=== PATIENT | male | born 1970 | race Caucasian/White ===

== ENCOUNTER 2017-12-12 18:36 | Emergency (ER) | payer SELFPAY ==
[2017-12-12] MEDS ORDERED: TETRACAINE HCL 0.5% 2ML OPTH ONE (19:42)
[2017-12-12] MEDS ORDERED: FLUORESCEIN SODIUM 0.6 MG/WRAP ONE (19:42)
--- NOTE | 2017-12-12 20:11 | ER ---
Nurse's Notes [facility] Name: Bear Clements Age: 47 yrs Sex: Male : 1970 Arrival Date: 12/12/2017 Time: 18:37 Bed Treatment Private MD: Alejandro Cary T Diagnosis: Foreign body in cornea, left eye;Corneal Abrasion, left eye Presentation: 12/12 18:47 Presenting complaint: Patient states: I was standing around yesterday and something la1 flew in to my left eye and I have had pain since then. Transition of care: patient was not received from another setting of care. Onset of symptoms was December 12, 2017. Initial Sepsis Screen: Does the patient meet any 2 criteria? No. Patient's initial sepsis screen is negative. Does the patient have a suspected source of infection? No. Patient initial sepsis screen negative. Care prior to arrival: None. 18:47 Method Of Arrival: Ambulatory la1 18:47 Acuity: GÉNESIS 4 la1 Historical: - Allergies: 18:48 Celebrex; la1 18:48 Morphine; la1 18:48 STEROIDAL NEUROMUSCULAR BLOCKERS; la1 18:48 Vicodin; la1 - PMHx: 18:48 None; la1 - Immunization history:: Adult Immunizations up to date. - Social history:: Smoking status: Patient uses tobacco products, cigars. - Family history:: not pertinent. - Hospitalizations: : No recent hospitalization is reported. Screenin:47 Abuse screen: Denies threats or abuse. Denies injuries from another. Nutritional ao screening: No deficits noted. Tuberculosis screening: No symptoms or risk factors identified. Fall Risk None identified. Assessment: 19:45 General: Appears in no apparent distress. uncomfortable, Behavior is calm, cooperative, ao appropriate for age. Pain: Denies pain. Neuro: Level of Consciousness is awake, alert, obeys commands, Oriented to person, place, time, situation, Appropriate for age Moves all extremities. Speech is normal, Facial symmetry appears normal. Cardiovascular: No deficits noted. Patient's skin is warm and dry. Respiratory: No deficits noted. Airway is patent Respiratory effort is even, unlabored, Respiratory pattern is regular, symmetrical. GI: No deficits noted. Abdomen is non-distended. : No signs and/or symptoms were reported regarding the genitourinary system. EENT: Eyes are tearing on iris of left eye Reports Foreign body in the right eye. Derm: No signs and/or symptoms reported regarding the dermatologic system. Musculoskeletal: No signs and/or symptoms reported regarding the musculoskeletal system. 20:01 Reassessment: DR Cotton at bedside trying to remove object in the eye. ao Vital Signs: 18:48 BP 142 / 91; Pulse 79; Resp 16; Temp 98.4; Pulse Ox 100% on R/A; Weight 77.11 kg; la1 Height 5 ft. 10 in. (177.80 cm); 18:48 Body Mass Index 24.39 (77.11 kg, 177.80 cm) la1 ED Course: 18:37 Patient arrived in ED. as 18:37 Alejandro Cary MD is Private Physician. as 18:47 Triage completed. la1 18:48 Arm band placed on left wrist. la1 19:24 Delroy Carranza RN is Primary Nurse. ao 19:39 Leonel Cotton MD is Attending Physician. rn 19:47 Patient has correct armband on for positive identification. Pulse ox on. NIBP on. ao 20:10 Michael Augustin MD is Referral Physician. rn 20:18 No provider procedures requiring assistance completed. Patient did not have IV access ao during this emergency room visit. Administered Medications: No medications were administered Outcome: 20:10 Discharge ordered by . rn 20:18 Discharged to home ambulatory. ao 20:18 Condition: stable 20:18 Discharge instructions given to patient, Instructed on discharge instructions, follow up and referral plans. Demonstrated understanding of instructions, follow-up care, medications, Prescriptions given X 1. 20:18 Patient left the ED. ao Signatures: Vale Matamoros Roman, MD MD rn Attema, Lee, RN RN la1 Delroy Carranza RN RN ao Corrections: (The following items were deleted from the chart) 18:49 18:47 Acuity: GÉNESIS 3 la1 la1
--- NOTE | 2017-12-12 20:11 | EDPHYS ---
Physician Documentation [facility] Name: Bear Clements Age: 47 yrs Sex: Male : 1970 Arrival Date: 12/12/2017 Time: 18:37 Bed Treatment Private MD: Alejandro Cary T ED Physician Leonel Cotton HPI: 12/12 20:02 This 47 yrs old Male presents to ER via Ambulatory with complaints of Foreign rn Body In Eye. 20:02 This 47 yrs old Male presents to ER via Ambulatory with complaints of Foreign rn Body In Eye. 20:02 The patient is experiencing foreign body sensation, The patient sustained Unknown. to rn the left eye. Onset: The symptoms/episode began/occurred yesterday. Associated signs and symptoms:. Severity of symptoms: At their worst the symptoms were moderate in the emergency department the symptoms are unchanged. The patient has not experienced similar symptoms in the past. 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 Does not wear contacts. . Historical: - Allergies: 18:48 Celebrex; la1 18:48 Morphine; la1 18:48 STEROIDAL NEUROMUSCULAR BLOCKERS; la1 18:48 Vicodin; la1 - PMHx: 18:48 None; la1 - Immunization history:: Adult Immunizations up to date. - Social history:: Smoking status: Patient uses tobacco products, cigars. - Family history:: not pertinent. - Hospitalizations: : No recent hospitalization is reported. ROS: 20:02 Constitutional: Negative for fever, chills, and weight loss, Eyes: + pain and redness rn to left arm Neuro: Negative for headache, weakness, numbness, tingling, and seizure. Exam: 20:02 Constitutional: This is a well developed, well nourished patient who is awake, alert, rn and in no acute distress. Head/Face: Normocephalic, atraumatic. Eyes: Pupils equal round and reactive to light, extra-ocular motions intact. Lids and lashes normal. + dark brown foreign object located superior cornea left eye, no visualized rust ring yet, unable to move object with fluid flush or q-tip. Left eye just lateral to object is small superficial corneal abrasion, neg miguel's sign. Vital Signs: 18:48 BP 142 / 91; Pulse 79; Resp 16; Temp 98.4; Pulse Ox 100% on R/A; Weight 77.11 kg; la1 Height 5 ft. 10 in. (177.80 cm); 18:48 Body Mass Index 24.39 (77.11 kg, 177.80 cm) la1 MDM: 19:39 Patient medically screened. rn 20:02 Differential diagnosis: Corneal abrasion of Corneal ulcer of Foreign body in. Data rn reviewed: vital signs, nurses notes, and as a result, I will discharge patient. Counseling: I had a detailed discussion with the patient and/or guardian regarding: the historical points, exam findings, and any diagnostic results supporting the discharge/admit diagnosis, the need for outpatient follow up, to return to the emergency department if symptoms worsen or persist or if there are any questions or concerns that arise at home. Special discussion: I discussed with the patient/guardian in detail that at this point there is no indication for admission to the hospital. It is understood, however, that if the symptoms persist or worsen the patient needs to return immediately for re-evaluation. Based on the history and exam findings, there is no indication for further emergent testing or inpatient evaluation. I discussed with the patient/guardian the need to see the opthamologist for further evaluation of the symptoms. ED course: Unable to remove metal object, recommend dc with abx drops and ophtho tomorrow morning in AM, patient already sees Dr. Augustin.. Administered Medications: No medications were administered Disposition: 12/12/17 20:10 Discharged to Home. Impression: Foreign body in cornea, left eye, Corneal Abrasion, left eye. - Condition is Stable. - Discharge Instructions: Corneal Abrasion, Eye Foreign Body. - Prescriptions for Vigamox 0.5 % Ophthalmic Drops - instill 1 drop by OPHTHALMIC route every 8 hours for 7 days; 5 milliliter. - Medication Reconciliation Form, Thank You Letter, Antibiotic Education, Prescription Opioid Use form. - Follow up: Michael Augustin MD; When: Tomorrow; Reason: Recheck today's complaints, Re-evaluation by your physician. - Problem is new. - Symptoms have improved. Signatures: Leonel Cotton MD MD rn Francisco Padgett RN RN la1 Delroy Carranza RN RN ao
== END 2017-12-12 20:18 | disposition home or self-care (01) ==
LOC: ER 18:36
DX: T15.02XA Foreign body in cornea, left eye, initial encounter (principal); S00.252A Superficial foreign body of left eyelid and periocular area, initial encounter; X58.XXXA Exposure to other specified factors, initial encounter; Y93.89 Activity, other specified; Y92.89 Other specified places as the place of occurrence of the external cause; Z88.5 Allergy status to narcotic agent; Z88.8 Allergy status to other drugs, medicaments and biological substances; Z72.0 Tobacco use
CPT/HCPCS: 99283